=== PATIENT | male | born 1985 | race Hispanic/Latino ===

== ENCOUNTER 2018-06-26 15:00 | Emergency (ER) | payer OTHER ==
[~2018-06-26] VITALS: Ht 177.8 cm; Wt 106.4 kg
--- NOTE | 2018-06-26 16:39 | REP ---
Duplex extremity venous ultrasound: Lower extremity. History: Left lower extremity pain. Question DVT. Findings: The deep veins are anechoic and fully compressible from the groin to the popliteal fossa in the left lower extremity. Color flow imaging is homogeneous. Spectral Doppler interrogation demonstrates intact respiratory variation in flow and normal manual augmentation of flow. There is no evidence of deep vein thrombosis. Impression: Negative left lower extremity duplex venous ultrasound. No evidence of deep vein thrombosis. Electronically Signed by Mendez Farnsworth MD 06/26/2018 04:31 P
[2018-06-26 16:56] VITALS: BP 157/72
--- NOTE | 2018-06-26 17:28 | REP ---
Soft-tissue ultrasound left lower extremity/calf. Nonvascular: History: Calf swelling and pain. [place] a pop while running. Sonographic findings: Scanning in the left calf soft tissues demonstrates a hypoechoic encapsulated area and mid calf skeletal muscle measuring 9.8 x 1.8 x 3.3 cm compatible with hematoma. The contralateral area on the right calf is scanned and no similar finding is seen. Impression: 9.9 x 1.8 x 3.3 cm hypoechoic avascular intramuscular area in the left calf compatible with muscle tear and hematoma. Electronically Signed by Mendez Farnsworth MD 06/26/2018 08:05 P
== END 2018-06-26 16:58 | disposition home or self-care (01) ==
LOC: M ED 15:00
DX: S86.812A Strain of other muscle(s) and tendon(s) at lower leg level, left leg, initial encounter (principal); S80.12XA Contusion of left lower leg, initial encounter; Y93.02 Activity, running; Y92.9 Unspecified place or not applicable; Y99.1 Military activity

== ENCOUNTER → 2018-07-30 | Outpatient (CLI) | payer OTHER ==
--- NOTE | 2018-07-30 14:06 | REP ---
MRI OF THE LEFT CALF WITHOUT CONTRAST: HISTORY: Left lower leg pain. Presumed muscle tear in the calf. Two injuries in the last 5 weeks with swelling. No comparison radiographs. Comparison sonography June 26, 2018 showed evidence of a soft tissue collection suggesting hematoma. TECHNIQUE: Axial, coronal, and sagittal imaging planes are included. T1- and T2-weighted scans were obtained with and without fat saturation. MRI FINDINGS: There is a complex fluid collection with low T1- low T2-signal intensity somewhat thickened wall involving the myofascial interface deep to the medial belly of the gastrocnemius muscle in the left calf. There is some intramuscular edema in the overlying gastrocnemius muscle belly. The low T1- low T2-signal intensity rim demonstrates hemosiderin staining consistent with hematoma. The lesion measures 14 mm from medial to lateral x 53 mm anterior to posterior x 156 mm cranial to caudal. It does not show evidence of communication with the knee. Cortical and medullary bone signal intensity are normal. No occult fracture is seen. Skeletal muscle demonstrates otherwise normal T1- and T2-weighted signal intensity. No vascular abnormality is seen. IMPRESSION: Findings consistent with resolving hematoma associated with myofascial interface of muscle tear involving the medial belly of the gastrocnemius muscle. Electronically Signed by Mendez Farnsworth MD 07/30/2018 03:09 P
== END ==
LOC: M RAD 11:08
DX: M79.606 Pain in leg, unspecified (principal)

== ENCOUNTER 2019-07-14 10:43 | Emergency (ER) | payer OTHER ==
[~2019-07-14] VITALS: Ht 177.8 cm; Wt 108.1 kg
[2019-07-14] MEDS ORDERED: methocarbamoL 500 MG TAB PO ONE (12:15)
[2019-07-14] MEDS ORDERED: IBUPROFEN 600MG TAB PO ONE (12:15)
[2019-07-14] MEDS ORDERED: IBUP80TA PO (12:46)
[2019-07-14] MEDS ORDERED: ROBA750T4 PO (12:46)
--- NOTE | 2019-07-14 12:50 | REP ---
LUMBOSACRAL SPINE: Five views of lumbosacral spine performed. There is no compression fracture or malalignment. There is normal lumbar lordosis with no spondylolysis or spondylolisthesis. Disc spaces are well preserved. Posterior elements are intact. IMPRESSION: Negative lumbosacral spine series. Electronically Signed by Abiodun De Jesus MD 07/14/2019 01:40 P
[2019-07-14 12:56] VITALS: BP 134/80
== END 2019-07-14 13:01 | disposition home or self-care (01) ==
LOC: M ED 10:43
DX: S39.012A Strain of muscle, fascia and tendon of lower back, initial encounter (principal); M54.31 Sciatica, right side; M54.5 Low back pain; X50.0XXA Overexertion from strenuous movement or load, initial encounter; Y92.9 Unspecified place or not applicable